=== PATIENT | female | born 2000 | race Caucasian/White ===

== ENCOUNTER 2024-10-05 14:56 | Emergency (ER) | payer OTHER ==
[2024-10-05 15:19] VITALS: BMI 40.9
[2024-10-05 16:06] VITALS: TEMP 99
[2024-10-05 17:52] LABS: HEMATOCRIT 34.2 % (32.4-45.2); HEMOGLOBIN 11.9 GM/dL (10.7-15.3); MCH 30.6 pg (25.7-33.7); MCHC 34.8 g/dl (32.0-36.0); MEAN PLT VOLUME 10.8 fl (7.5-11.1); PLATELET COUNT 172 10^3/uL (134-434); RBC 3.89 M/mm3 (3.60-5.2); RDW 14.4 % (11.6-15.6); RETICULOCYTES 2.63 % (0.5-1.5); WHITE BLOOD COUNT 10.1 K/mm3 (4.0-10.0)
[2024-10-05] MEDS ORDERED: LABETALOL HCL 200 MG TABLET (FP) ONE (17:53)
[2024-10-05] MEDS ORDERED: ACETAMINOPHEN 325 MG TABLET (FP) ONE (17:53)
[2024-10-05] MEDS: LABETALOL HCL 200 MG TABLET (FP) PO SCH (17:57)
[2024-10-05] MEDS: ACETAMINOPHEN 325 MG TABLET (FP) PO ONE (17:58)
[2024-10-05 18:01] LABS: POTASSIUM 4.4 mmol/L (3.5-5.1)
[2024-10-05 18:03] LABS: ALBUMIN 2.1 g/dl (3.4-5.0); CALCIUM 9.4 mg/dL (8.5-10.1)
[2024-10-05 18:04] LABS: BLOOD UREA NITROGEN 13.6 mg/dL (7-18)
[2024-10-05 18:07] LABS: CREATININE 0.6 mg/dL (0.55-1.3)
[2024-10-05 18:08] LABS: BILIRUBIN,TOTAL 0.2 mg/dL (0.2-1); TOT PROT 5.3 g/dl (6.4-8.2)
[2024-10-05 19:48] VITALS: RESP 20
[2024-10-05 19:49] VITALS: BP 134/80; PULSE 77
[2024-10-12] MEDS ORDERED: LABETALOL HCL 200 MG TABLET (FP) ONE (10:28)
[2024-10-12] MEDS ORDERED: NIFEdipine 10 MG CAPSULE (FP) ONE (11:54)
[2024-10-12] MEDS ORDERED: ACETAMINOPHEN 325 MG TABLET (FP) ONE (12:48)
[2024-10-12] MEDS ORDERED: BETAMET ACET/BETAMET NA PH 30 MG/5 ML VIAL ONE (12:48)
[2024-10-15] MEDS ORDERED: MAGNESIUM SULFATE 20GM/500ML - 20 GM/500 ML INFUS.BAG ONE (18:00)
== END 2024-10-05 19:20 | disposition home or self-care (01) ==
LOC: JER 14:56
DX: O99.891 Other specified diseases and conditions complicating pregnancy (principal); R51.9 Headache, unspecified; R42 Dizziness and giddiness; O26.893 Other specified pregnancy related conditions, third trimester; R10.30 Lower abdominal pain, unspecified; Z3A.30 30 weeks gestation of pregnancy
CPT/HCPCS: 36415; 76819-TC; 80053; 82570; 82977; 83010; 84156; 84450; 84460; 84550; 85027; 85032; 85045; 99284-25

== ENCOUNTER 2024-10-12 09:06 | Inpatient (IN) | payer OTHER ==
[2024-10-12] MEDS: LABETALOL HCL 200 MG TABLET (FP) PO ONE (10:30)
[2024-10-12 11:18] LABS: POTASSIUM 4.6 mmol/L (3.5-5.1)
[2024-10-12 11:21] LABS: ALBUMIN 1.9 g/dl (3.4-5.0); BLOOD UREA NITROGEN 13.8 mg/dL (7-18); CALCIUM 8.7 mg/dL (8.5-10.1)
[2024-10-12 11:25] LABS: BILIRUBIN,TOTAL 0.2 mg/dL (0.2-1); CREATININE 0.8 mg/dL (0.55-1.3)
[2024-10-12 11:26] LABS: TOT PROT 5.2 g/dl (6.4-8.2)
[2024-10-12 11:37] LABS: HEMATOCRIT 35.9 % (32.4-45.2); HEMOGLOBIN 12.4 GM/dL (10.7-15.3); MCH 30.7 pg (25.7-33.7); MCHC 34.7 g/dl (32.0-36.0); MEAN CELL VOLUME 88.3 fl (80-96); MEAN PLT VOLUME 11.5 fl (7.5-11.1); PLATELET COUNT 150 10^3/uL (134-434); RBC 4.06 M/mm3 (3.60-5.2); RDW 14.5 % (11.6-15.6); WHITE BLOOD COUNT 11.8 K/mm3 (4.0-10.0)
[2024-10-12] MEDS: NIFEdipine 10 MG CAPSULE (FP) PO ONE (11:55)
[2024-10-12] MEDS: ACETAMINOPHEN 325 MG TABLET (FP) PO ONE (12:50)
[2024-10-12] MEDS: BETAMET ACET/BETAMET NA PH 30 MG/5 ML VIAL IM ONE (12:55)
[2024-10-12 13:41] VITALS: BMI 40.9
[2024-10-12] MEDS ORDERED: LABETALOL HCL 200 MG TABLET (FP) ONE (20:01)
[2024-10-12] MEDS: LABETALOL HCL 200 MG TABLET (FP) PO SCH (20:04)
[2024-10-13 06:15] VITALS: TEMP 97.6
[2024-10-13 08:13] LABS: BASO % 0.1 % (0-2.0); HEMATOCRIT 36.3 % (32.4-45.2); HEMOGLOBIN 12.6 GM/dL (10.7-15.3); LYMPH % 12.1 % (8-40); MCH 30.6 pg (25.7-33.7); MCHC 34.8 g/dl (32.0-36.0); MEAN CELL VOLUME 87.9 fl (80-96); MEAN PLT VOLUME 11.1 fl (7.5-11.1); MONO % 3.7 % (3.8-10.2); NEUT % 84.1 % (42.8-82.8); PLATELET COUNT 151 10^3/uL (134-434); RBC 4.13 M/mm3 (3.60-5.2); RDW 14.7 % (11.6-15.6); WHITE BLOOD COUNT 12.5 K/mm3 (4.0-10.0)
[2024-10-13 08:26] VITALS: RESP 17
[2024-10-13 08:42] LABS: POTASSIUM 4.9 mmol/L (3.5-5.1)
[2024-10-13 08:44] LABS: BLOOD UREA NITROGEN 25.7 mg/dL (7-18); CALCIUM 8.2 mg/dL (8.5-10.1)
[2024-10-13 08:49] LABS: BILIRUBIN,TOTAL 0.2 mg/dL (0.2-1); TOT PROT 5.2 g/dl (6.4-8.2)
[2024-10-13] MEDS ORDERED: LABETALOL HCL 200 MG TABLET (FP) ONE (10:14)
[2024-10-13 15:54] LABS: HIV INTERPRETATION NEGATIVE (NEGATIVE)
[2024-10-13 15:58] VITALS: BP 144/85; PULSE 76
== END 2024-10-13 14:17 | disposition home or self-care (01) | DRG 566 ==
LOC: JER 09:06 → JLDR 12:45
PROVIDERS: ADMIT Student in an Organized Health Care Education/Training Program; ATTEND Student in an Organized Health Care Education/Training Program
DX: O14.03 Mild to moderate pre-eclampsia, third trimester (principal); Z3A.32 32 weeks gestation of pregnancy
CPT/HCPCS: 36415; 80053; 85025; 85027; 86803; 86850; 86900; 86901; 87389; 99285-25

== ENCOUNTER 2024-10-15 13:15 | Inpatient (IN) | payer OTHER ==
[2024-10-15] MEDS: ELECTROLYTE-148 SOLN 1,000 ML IV ONE (14:15)
[2024-10-15 16:58] LABS: HEMOGLOBIN 12.8 GM/dL (10.7-15.3); MCH 29.3 pg (25.7-33.7); MCHC 32.9 g/dl (32.0-36.0); MEAN CELL VOLUME 89.2 fl (80-96); MEAN PLT VOLUME 11.1 fl (7.5-11.1); PLATELET COUNT 169 10^3/uL (134-434); RBC 4.37 M/mm3 (3.60-5.2); RDW 14.6 % (11.6-15.6); RETICULOCYTES 2.39 % (0.5-1.5); WHITE BLOOD COUNT 15.2 K/mm3 (4.0-10.0)
[2024-10-15 16:59] VITALS: BMI 43.5
[2024-10-15 17:04] LABS: INR 0.84 (0.83-1.09); PROTHROMBIN TIME (PATIENT) 9.5 SEC (9.7-13.0)
[2024-10-15 17:07] LABS: ACTIVATED PTT 26.6 SECONDS (25.2-36.5)
[2024-10-15 17:16] LABS: POTASSIUM 4.8 mmol/L (3.5-5.1)
[2024-10-15 17:17] LABS: MAGNESIUM 2.7 mg/dL (1.8-2.4)
[2024-10-15 17:18] LABS: CALCIUM 8.3 mg/dL (8.5-10.1)
[2024-10-15 17:19] LABS: ALBUMIN 1.9 g/dl (3.4-5.0); BLOOD UREA NITROGEN 28.8 mg/dL (7-18)
[2024-10-15 17:20] LABS: URIC ACID 9.8 mg/dL (2.6-7.2)
[2024-10-15 17:21] LABS: CREATININE 0.9 mg/dL (0.55-1.3)
[2024-10-15 17:24] LABS: BILIRUBIN,TOTAL 0.2 mg/dL (0.2-1); TOT PROT 4.9 g/dl (6.4-8.2)
[2024-10-15] MEDS ORDERED: MAGNESIUM 4GM/H20 - 4 GM/100 ML IVPB IVPB ONE (17:26)
[2024-10-15] MEDS: MAGNESIUM 4GM/H20 - 4 GM/100 ML IVPB IVPB ONE (17:30)
[2024-10-15] MEDS: MAGNESIUM SULFATE 20GM/500ML - 20 GM/500 ML INFUS.BAG IVPB SCH (18:00)
[2024-10-15 20:45] VITALS: RESP 17
[2024-10-15 20:55] VITALS: BP 128/78; PULSE 78; TEMP 97.8
== END 2024-10-15 20:45 | disposition short-term general hospital (02) | DRG 566 ==
LOC: JDEL 13:15 → JLDR 16:27
PROVIDERS: ADMIT Obstetrics & Gynecology; ATTEND Obstetrics & Gynecology
DX: O14.93 Unspecified pre-eclampsia, third trimester (principal); O10.913 Unspecified pre-existing hypertension complicating pregnancy, third trimester; O99.213 Obesity complicating pregnancy, third trimester; Z3A.33 33 weeks gestation of pregnancy
CPT/HCPCS: 36415; 80053; 82977; 83010; 83735; 84550; 85025; 85045; 85610; 85730; 86780; 86850; 86900; 86901; 87635